=== PATIENT | female | born 1970 | race Caucasian/White ===

== ENCOUNTER 2020-10-17 14:27 | Emergency (ER) | payer OTHER ==
[2020-10-17 16:06] LABS: HEMOGLOBIN 14.7 gm/dl (12.3-15.3); RED BLOOD COUNT 4.81 M/UL (4.00-5.10); WHITE BLOOD COUNT 7.8 K/UL (4.5-11.0)
[2020-10-17 16:30] LABS: BUN/CREATININE RATIO 24 (0-10)
[2020-10-17] MEDS ORDERED: VIBRAMYCIN100 MG PO (18:35)
== END 2020-10-17 18:45 | disposition home or self-care (01) ==
LOC: ER1 14:27
PROVIDERS: Emergency Medicine
DX: A69.20 Lyme disease, unspecified (principal)
CPT/HCPCS: 80053; 81001; 83690; 85025; 85652; 86140; 99283; Q9967